=== PATIENT | male | born 1985 | race Caucasian/White ===

== ENCOUNTER 2017-10-04 08:01 | Emergency (ER) | payer OTHER ==
[~2017-10-04] VITALS: Ht 172.7 cm; Wt 89.4 kg
[2017-10-04 08:03] VITALS: BP 112/72
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
--- NOTE | 2017-10-04 08:22 | NUR ---
X-RAY DONE AT BEDSIDE.
--- NOTE | 2017-10-04 08:25 | NUR ---
Patient being evaluated by physician at bedside.
[2017-10-04] MEDS ORDERED: NEOMYCIN/POLYMYXIN/BACITRACIN 0.9 GM/1 PKT TP ONE (08:45)
[2017-10-04 09:04] VITALS: BP 112/72
--- NOTE | 2017-10-04 09:04 | NUR ---
Patient discharged with v/s stable. Written and verbal after care instructions given and explained. Patient alert, oriented and verbalized understanding of instructions. Ambulatory with steady gait. All questions addressed prior to discharge. ID band removed. Patient advised to follow up with PMD. Rx of MOTRIN, KEFLEX given. Patient educated on indication of medication including possible reaction and side effects. Opportunity to ask questions provided and answered.
== END 2017-10-04 09:04 | disposition home or self-care (01) ==
LOC: MED 08:01
DX: S62.664A Nondisplaced fracture of distal phalanx of right ring finger, initial encounter for closed fracture (principal); X58.XXXA Exposure to other specified factors, initial encounter; Y93.89 Activity, other specified; Y92.89 Other specified places as the place of occurrence of the external cause; Y99.8 Other external cause status
CPT/HCPCS: 73140; 99284; Q0092